=== PATIENT | male | born 1990 | race Caucasian/White ===

== ENCOUNTER → 2021-12-12 | Outpatient (CLI) | payer SELFPAY ==
--- NOTE | 2021-12-12 12:41 | Diagnostic Imaging Report ---
EXAMINATION: Facial bone three views. HISTORY: Facial injury. COMPARISON: None available. FINDINGS: Orbital rims are intact. Paranasal sinuses appear well aerated. No mandibular fracture is seen. Nasal bones appear intact. IMPRESSION: 1. No fracture seen in the face. Consider facial CT if there is concern for fracture. Dictated by: Dictated on workstation # [id number]
--- NOTE | 2021-12-12 12:42 | Diagnostic Imaging Report ---
EXAMINATION: Bilateral ribs, two views each COMPARISON: None available. HISTORY: Chest injury. FINDINGS: No rib fracture is seen on either side. No pneumothorax. No pleural effusion. Heart size is normal. IMPRESSION: 1. No rib fracture seen on either side Dictated by: Dictated on workstation # [id number]
--- NOTE | 2021-12-12 12:45 | Diagnostic Imaging Report ---
EXAMINATION: Lumbosacral spine four views or more. HISTORY: Back injury. COMPARISON: None available. FINDINGS: The alignment of the lumbar spine is normal. Vertebral body heights are normal. Disc spaces are normal. No acute fracture is seen. No evidence for pars defects. IMPRESSION: 1. No fracture in the lumbar spine. Dictated by: Dictated on workstation # [id number]
== END ==
LOC: RAD 12:05
PROVIDERS: ATTEND Nurse Practitioner
DX: S09.93XA Unspecified injury of face, initial encounter (principal); X58.XXXA Exposure to other specified factors, initial encounter
CPT/HCPCS: 70150; 71110; 72110

== ENCOUNTER → 2023-02-14 | Outpatient (CLI) | payer SELFPAY ==
--- NOTE | 2023-02-14 11:03 | Diagnostic Imaging Report ---
PROCEDURE: MR imaging left lower extremity without contrast. TECHNIQUE: Multiplanar, multisequence non contrast enhanced MR imaging of the left lower extremity was accomplished. INDICATION: Left midfoot pain. COMPARISON: None available. FINDINGS: Bones: There is abnormal bone marrow edema involving the proximal one-third of the 2nd metatarsal. This is associated with chronic nonaggressive periosteal reaction present. Smooth cortical irregularity is also noted along the area of cortical thickening. The remainder of the osseous structures of the midfoot and forefoot maintain normal signal. No additional areas of bone marrow edema. Soft tissues: There is small amount of soft tissue edema around the base of the 2nd metatarsal. Otherwise, no abnormal areas of soft tissue edema noted. No thickening of plantar fascia to suggest fibromatosis. No intermetatarsal bursitis or features of Kelley's neuroma. Lisfranc ligamentous complex is intact. IMPRESSION: 1. Abnormal bone marrow edema and focal periosteal reaction involving the base of the 2nd metatarsal. There is possibility of an intracortical nidus and therefore osteoid osteoma could be the origin of this pain. CT of the foot without contrast is advised to better evaluate the osseous detail and help assess for the possibility of an osteoid osteoma. 2. In the absence of the nidus on CT, this bone marrow edema could be due to stress reaction. Dictated by: Dictated on workstation # [id number]
== END ==
LOC: RAD 08:45
PROVIDERS: ATTEND Pediatrics
DX: M79.672 Pain in left foot (principal)